=== PATIENT | female | born 1965 | race Caucasian/White ===

== ENCOUNTER 2018-06-03 02:15 | Outpatient (CLI) | payer OTHER, SELFPAY ==
[2018-06-03 09:15] LABS: Anion Gap 7.7 mmol/L (3-11); BUN 14 mg/dL (7-18); CO2 27.3 mmol/L (21.0-32.0); CREATININE 0.86 mg/dL (0.55-1.02); Calcium 8.8 mg/dL (8.5-10.1); Chloride 105 mmol/L (98-107); Cholesterol 228 mg/dL (50-200); Glucose 108 mg/dL (70-100); HDL Cholesterol 40 mg/dL (40-60); LDL CHOLESTEROL 160 mg/dL (<100); Potassium 4.2 mmol/L (3.5-5.1); Sodium 140 mmol/L (136-145); Triglyceride 179 mg/dL (30-150)
== END 2018-06-03 02:35 ==
PROVIDERS: PCP Nurse Practitioner Family; Visit Provider Nurse Practitioner Family
DX: E78.1 Pure hyperglyceridemia (principal); E28.2 Polycystic ovarian syndrome
CPT/HCPCS: 36415; 80048; 80061; 83721

== ENCOUNTER 2018-09-03 16:09 | Outpatient (CLI) | payer OTHER, SELFPAY ==
[2018-09-03 17:40] LABS: ALT 82 U/L (12-78); AST 43 U/L (15-37); Albumin 3.9 g/dL (3.4-5.0); Alkaline Phosphatase 79 U/L (46-116); Bilirubin, Direct 0.08 mg/dL (0.00-0.20); Bilirubin, Total 0.4 mg/dL (0.2-1.0); TSH 3.89 uIU/mL (0.358-3.74); Total Protein 7.3 g/dL (6.4-8.2)
[2018-09-06 09:45] LABS: FSH 37.9 mIU/ml; LH 23.8 mIU/ml
== END 2018-09-03 16:29 ==
PROVIDERS: PCP Nurse Practitioner Family; Visit Provider Nurse Practitioner Family
DX: E78.1 Pure hyperglyceridemia (principal); E28.2 Polycystic ovarian syndrome; E66.9 Obesity, unspecified
CPT/HCPCS: 36415; 80076; 83001; 83002; 84443

== ENCOUNTER 2018-09-14 16:19 | Outpatient (CLI) | payer OTHER, SELFPAY ==
[2018-09-14 17:53] LABS: Iron 52 ug/dL (50-175); Total Iron Binding Capacity 352 ug/dL (250-450); Transferrin Sat 15 % (15-50)
[2018-09-14 18:06] LABS: Ferritin 79 ng/mL (8-388)
[2018-09-16 10:32] LABS: Hepatitis C Ab w Rflx HCV PCR Negative (NEGAT)
[2018-09-16 11:32] LABS: Hepatitis B Surface Ag Negative (NEGAT)
[2018-09-16 11:45] LABS: HBs Antibody, Quant 15.9 mIU/mL; Hepatitis B Surface Ab Positive
[2018-09-16 11:49] LABS: Hep B Core Antibody Negative (NEGAT)
[2018-09-16 13:20] LABS: Transferrin 235 mg/dL (201-352)
== END 2018-09-14 16:39 ==
PROVIDERS: PCP Nurse Practitioner Family; Visit Provider Nurse Practitioner Family
DX: R74.8 Abnormal levels of other serum enzymes (principal)
CPT/HCPCS: 36415; 86704; 86706; 86803; 87340; 82728; 83540; 83550; 84466

== ENCOUNTER 2018-12-01 01:30 | Outpatient (CLI) | payer OTHER, SELFPAY | END 2018-12-01 01:50 | PROVIDERS: PCP Nurse Practitioner Family; Visit Provider Internal Medicine Endocrinology, Diabetes & Metabolism | DX: L68.0 Hirsutism (principal) | CPT/HCPCS: 36415; 82565 ==

== ENCOUNTER 2018-12-06 00:53 | Outpatient (CLI) | payer OTHER, SELFPAY ==
--- NOTE | 2018-12-06 11:02 | DI.MRI_ITS ---
SYMPTOM/DIAGNOSIS: HIRSUTISM, L68.0, ASSESS FOR ADNEXAL OR ADRENAL MASS, OBESITY, E66.9 PELVIS MRI: Comparison is made with pelvic ultrasound dated 01/30/15. The uterus appears normal in size. No fibroids are seen. The endometrial stripe appears normal in thickness. A Nabothian cyst is noted. The bladder is unremarkable. No ovarian cysts or masses are identified. There is no free fluid. There are no abnormal areas of enhancement. The visualized portions of the bowel are unremarkable. IMPRESSION: Pelvic MRI is within normal limits. There is no evidence of an adnexal mass or cyst. ABDOMEN MRI: T 1 and fat suppressed T 2 axial and coronal and post Dotarem T 1 fat suppressed axial and coronal sequences were performed. There is no evidence of an adrenal mass. The heart size is normal. The liver, spleen, gallbladder, pancreas and spleen are unremarkable. The left kidney appears normal. There is a simple appearing cyst at the upper pole of the right kidney. The aorta is normal in diameter. The spine is unremarkable where visualized. IMPRESSION: Simple cyst at the upper pole of the right kidney. No evidence of adrenal mass.
[2018-12-06] MEDS: Normal Saline Flush 10 ML SYR IVP (11:06)
[2018-12-06] MEDS: Gadoterate meglumine 20 ML VIAL IVP (11:07)
== END 2018-12-06 01:13 ==
PROVIDERS: PCP Nurse Practitioner Family; Visit Provider Internal Medicine Endocrinology, Diabetes & Metabolism
DX: N88.8 Other specified noninflammatory disorders of cervix uteri (principal); L68.0 Hirsutism; N28.1 Cyst of kidney, acquired; E66.9 Obesity, unspecified
CPT/HCPCS: 72197; 74183

== ENCOUNTER 2019-03-17 07:58 | Outpatient (CLI) | payer OTHER, SELFPAY ==
[2019-03-17 08:46] LABS: Hemoglobin A1C 5.9 % (4.5-6.2)
[2019-03-17 09:29] LABS: Glucose 96 mg/dL (70-100)
== END 2019-03-17 08:18 ==
PROVIDERS: PCP Nurse Practitioner Family; Visit Provider Nurse Practitioner Family
DX: R94.6 Abnormal results of thyroid function studies (principal); L68.0 Hirsutism; E66.9 Obesity, unspecified
CPT/HCPCS: 36415; 82947; 83036; 84443

== ENCOUNTER 2019-05-11 12:53 | Outpatient (CLI) | payer OTHER, SELFPAY ==
--- NOTE | 2019-05-11 16:32 | DI.MAMMO_ITS ---
EXAM: MG MAMMO SCREENING CLINICAL HISTORY: SCREENING, Z12.39. TECHNIQUE: Bilateral full field digital CC and MLO mammographic images were obtained with 3D tomosyn thesis and utilizing computer aided detection (CAD). COMPARISON: [id number] FINDINGS: Masses/Architectural Distortion: None seen. Microcalcifications: No suspicious pleomorphic-type are seen. Skin Thickening/Nipple Retraction: None. IMPRESSION: 1. No significant interval change with no specific features of malignancy noted. 2. Unless there is more urgent need, screening mammography is recommended, as per [place] [employer] guidelines. BI-RADS Cat 1 - Negative Breast Density - Category B - Scattered areas of fibroglandular density A negative radiographic report should not delay biopsy if a dominant or clinically suspicious mass is present. Up to ten percent of cancers are not identified on mammography. A negative report may reinforce clinical impression. Adenosis and dense breasts may obscure an underlying neoplasm. False positive reports average 6 to 10%. Patient will receive a letter notifying them of these results.
== END 2019-05-11 13:13 ==
PROVIDERS: PCP Nurse Practitioner Family; Visit Provider Nurse Practitioner Family
DX: Z12.31 Encounter for screening mammogram for malignant neoplasm of breast (principal)
CPT/HCPCS: 77063; 77067

== ENCOUNTER 2019-08-25 10:20 | Outpatient (REF) | payer OTHER, SELFPAY ==
--- NOTE | 2019-08-25 08:30 | PAPFT_PTH ---
PATIENT: Manuela Baker LOC: [facility]#:[id number] AGE/SX: 54/F ROOM: RE08/25/[address]: Kelsey Mcdowell : 1965 BED: DIS: 08/25/2019 SPEC #: [id number] RECD: 08/26/19 12:51 STATUS: STEVENSON REQ #: [id number] RADHA: 08/25/19 08:[address]: Kelsey Mcdowell DEPT: [facility] Cytology RECD BY: Ness Ramos Tissues: 1 - CX/ENDOCX FOR PAP SMEARS Procedures: PAP THIN PREP/UVM Screening HPV DNA PROBE Comments: [id number]
[2019-08-25 19:48] LABS: ALT 38 U/L (14-59); AST 23 U/L (15-37); Alkaline Phosphatase 93 U/L (46-116); Bilirubin, Total 0.6 mg/dL (0.2-1.0); Calculated LDL 163 mg/dL (<100); Cholesterol 234 mg/dL (<200); HDL Cholesterol 44 mg/dL (40-60); TSH (W/Ref FT4) 1.59 uIU/mL (0.36-3.74); Total Protein 7.3 g/dL (6.4-8.2); Triglyceride 139 mg/dL (<150)
[2019-08-25 20:01] LABS: Bilirubin, Direct 0.11 mg/dL (0.00-0.20)
[2019-08-25 20:10] LABS: Vitamin D 25 Total 56.4 ng/ml (30-100)
== END 2019-08-25 10:40 ==
LOC: NCHCN 10:20
PROVIDERS: PCP Nurse Practitioner Family; Visit Provider Nurse Practitioner Family
DX: Z00.00 Encounter for general adult medical examination without abnormal findings (principal); Z13.220 Encounter for screening for lipoid disorders; Z13.21 Encounter for screening for nutritional disorder; R94.6 Abnormal results of thyroid function studies; Z12.4 Encounter for screening for malignant neoplasm of cervix; Z01.419 Encounter for gynecological examination (general) (routine) without abnormal findings
CPT/HCPCS: 80061; 80076; 82306; 88142; 84443; 87624

== ENCOUNTER 2019-09-29 08:41 | Outpatient (REF) | payer OTHER, SELFPAY ==
[2019-09-29 19:07] LABS: Anion Gap 8.2 mmol/L (3-11); BUN 13 mg/dL (7-18); CO2 25.8 mmol/L (21.0-32.0); CREATININE 0.82 mg/dL (0.55-1.02); Calcium 9.1 mg/dL (8.5-10.1); Chloride 104 mmol/L (98-107); Glucose 92 mg/dL (74-106); Potassium 4.4 mmol/L (3.5-5.1); Sodium 138 mmol/L (136-145)
== END 2019-09-29 09:01 ==
LOC: NCHCN 08:41
PROVIDERS: PCP Nurse Practitioner Family; Visit Provider Nurse Practitioner Family
DX: Z79.899 Other long term (current) drug therapy (principal)
CPT/HCPCS: 80048

== ENCOUNTER 2020-05-17 02:07 | Outpatient (CLI) | payer OTHER, SELFPAY ==
--- NOTE | 2020-05-17 | DI.MAMMO_ITS ---
EXAM: MG MAMMO SCREENING CLINICAL HISTORY: SCREENING, [facility],Z00.00. TECHNIQUE: Bilateral full field digital CC and MLO mammographic images were obtained with 3D tomosyn thesis and utilizing computer aided detection (CAD). COMPARISON: Prior mammograms dating back to 2010, the most recent being May 2019. FINDINGS: There are no new dominant masses nor malignant appearing microcalcification groups. Small benign micr ocalcification group in the left breast is noted. There is no new architectural distortion nor skin thickening-retraction. IMPRESSION: No radiographic evidence of malignancy. BI-RADS Category 1 - Negative Breast Density - Category B - Scattered areas of fibroglandular density Breast density Category C or D implies that the patient has dense breast tissue. Dense breast tissue can make it harder to find cancer on a mammogram. Dense breast tissue is also associated with an incr eased risk of breast cancer. This information about the result of the mammogram report was provided to the patient to raise their awareness. Use this report when you speak with the patient about their risks for breast cancer, which includes their family history. At that time, you may recommend additional screening tests (Ultrasoun d or MRI) as these tests may add significant information. A negative radiographic report should not delay biopsy if a dominant or clinically suspicious mass is present. Up to ten percent of cancers are not identified on mammography. A negative report may reinforce clinical impression. Adenosis and dense breasts may obscure an underlying neoplasm. False positive reports average 6 to 10%. Patient will receive a letter notifying them of these results.
== END 2020-05-17 02:27 ==
PROVIDERS: PCP Nurse Practitioner Family; Visit Provider Nurse Practitioner Family
DX: Z12.31 Encounter for screening mammogram for malignant neoplasm of breast (principal); Z00.00 Encounter for general adult medical examination without abnormal findings; R92.0 Mammographic microcalcification found on diagnostic imaging of breast
CPT/HCPCS: 77063; 77067

== ENCOUNTER 2020-09-06 09:58 | Outpatient (REF) | payer OTHER, SELFPAY ==
[2020-09-06 15:55] LABS: Hemoglobin A1C 6.1 % (<5.7)
[2020-09-06 15:56] LABS: Anion Gap 10.6 mmol/L (3-11); BUN 18 mg/dL (7-18); CO2 24.4 mmol/L (21.0-32.0); Calcium 9.5 mg/dL (8.5-10.1); Chloride 104 mmol/L (98-107); Estimated GFR 57.35 (mL/min/1.73m2); Glucose 97 mg/dL (74-106); Potassium 4.5 mmol/L (3.5-5.1); Sodium 139 mmol/L (136-145); TSH 2.81 uIU/mL (0.36-3.74)
[2020-09-06 16:12] LABS: Calculated LDL 191 mg/dL (<100); Cholesterol 264 mg/dL (<200); HDL Cholesterol 46 mg/dL (40-60); Triglyceride 139 mg/dL (<150)
[2020-09-07 15:36] LABS: FREE T4 1.07 ng/dL (0.76-1.46)
== END 2020-09-06 09:59 | disposition home or self-care (01) ==
LOC: NCHCN 09:58
PROVIDERS: PCP Nurse Practitioner Family; Visit Provider Nurse Practitioner Family
DX: R94.6 Abnormal results of thyroid function studies (principal); Z00.00 Encounter for general adult medical examination without abnormal findings; R73.03 Prediabetes; E28.2 Polycystic ovarian syndrome; Z13.220 Encounter for screening for lipoid disorders
CPT/HCPCS: 80048; 80061; 83036; 84439; 84443

== ENCOUNTER 2020-12-21 03:20 | Outpatient (CLI) | payer OTHER, SELFPAY ==
[2020-12-21 10:55] LABS: Glucose 97 mg/dL (74-106)
[2020-12-21 21:46] LABS: Calculated LDL 111 mg/dL (<100); Cholesterol 169 mg/dL (<200); HDL Cholesterol 44 mg/dL (40-60); Triglyceride 74 mg/dL (<150)
== END 2020-12-21 03:21 | disposition home or self-care (01) ==
LOC: LBO 03:20
PROVIDERS: PCP Nurse Practitioner Family; Visit Provider Nurse Practitioner Family
DX: R73.03 Prediabetes (principal)
CPT/HCPCS: 36415; 80061; 82947

== ENCOUNTER 2021-01-29 08:25 | Outpatient (REF) | payer OTHER, SELFPAY ==
[2021-01-29 19:38] LABS: COVID-19 RT-PCR UVMMC Result Negative (Negative)
== END 2021-01-29 08:26 | disposition home or self-care (01) ==
LOC: LBN 08:25
PROVIDERS: PCP Nurse Practitioner Family; Visit Provider Nurse Practitioner Pediatrics
DX: Z20.822 Contact with and (suspected) exposure to COVID-19 (principal)
CPT/HCPCS: U0003

== ENCOUNTER 2021-03-29 10:37 | Outpatient (REF) | payer OTHER, SELFPAY ==
[2021-03-29 20:56] LABS: COVID-19 RT-PCR UVMMC Result Negative (Negative)
== END 2021-03-29 10:38 | disposition home or self-care (01) ==
LOC: LBN 10:37
PROVIDERS: PCP Nurse Practitioner Family; Visit Provider Nurse Practitioner Family
DX: Z20.822 Contact with and (suspected) exposure to COVID-19 (principal)
CPT/HCPCS: U0003

== ENCOUNTER 2021-09-30 04:46 | Outpatient (CLI) | payer OTHER, SELFPAY ==
[2021-09-30 12:12] LABS: Anion Gap 7.3 mmol/L (3-11); BUN 14 mg/dL (7-18); CO2 28.7 mmol/L (21.0-32.0); CREATININE 0.9 mg/dL (0.55-1.02); Calcium 9.4 mg/dL (8.5-10.1); Calculated LDL 200 mg/dL (<100); Chloride 104 mmol/L (98-107); Cholesterol 285 mg/dL (<200); Glucose 100 mg/dL (74-106); HDL Cholesterol 50 mg/dL (40-60); Potassium 4.3 mmol/L (3.5-5.1); Sodium 140 mmol/L (136-145); TSH 2.93 uIU/mL (0.36-3.74); Triglyceride 175 mg/dL (<150)
[2021-09-30 12:29] LABS: FREE T4 0.91 ng/dL (0.76-1.46)
== END 2021-09-30 04:47 | disposition home or self-care (01) ==
LOC: LBO 04:46
PROVIDERS: PCP Nurse Practitioner Family; Visit Provider Nurse Practitioner Family
DX: Z00.00 Encounter for general adult medical examination without abnormal findings (principal); R73.03 Prediabetes; E78.5 Hyperlipidemia, unspecified; R94.5 Abnormal results of liver function studies
CPT/HCPCS: 36415; 80048; 80061; 83036; 84439; 84443

== ENCOUNTER 2021-10-15 22:07 | Outpatient (REF) | payer OTHER, SELFPAY ==
[2021-10-15 14:39] LABS: Source Nasal/Nares
[2021-10-15 17:50] LABS: COVID-19 PCR Negative (Negative)
== END 2021-10-15 22:08 | disposition home or self-care (01) ==
LOC: LBN 22:07
PROVIDERS: PCP Nurse Practitioner Family; Visit Provider Nurse Practitioner Family
DX: Z20.822 Contact with and (suspected) exposure to COVID-19 (principal)
CPT/HCPCS: 87635

== ENCOUNTER → 2022-05-19 02:17 | Outpatient (CLI) | payer OTHER, SELFPAY ==
--- NOTE | 2022-05-19 12:15 | DI.MAMMO_ITS ---
Exam(s) MAMMO SCREENING EXAM: MAMMO SCREENING CLINICAL HISTORY: SCREENING FOR BREAST CANCER Z12.39. TECHNIQUE: Bilateral full field digital CC and MLO mammographic images were obtained with 3D tomosyn thesis and utilizing computer aided detection (CAD). COMPARISON: Prior mammograms were reviewed. FINDINGS: There has been no significant change in the appearance and distribution of the fibroglandular tissue. Asymmetric tissue in the right breast is unchanged from prior studies. There are no new spiculated masses nor malignant appearing microcalcification groups. There is no significant architectural distortion nor skin thickening-retraction. IMPRESSION: No radiographic evidence of malignancy. BI-RADS Category 1 - Negative Breast Density - Category B - Scattered areas of fibroglandular density Breast density Category C or D implies that the patient has dense breast tissue. Dense breast tissue can make it harder to find cancer on a mammogram. Dense breast tissue is also associated with an incr eased risk of breast cancer. This information about the result of the mammogram report was provided to the patient to raise their awareness. Use this report when you speak with the patient about their risks for breast cancer, which includes their family history. At that time, you may recommend additional screening tests (Ultrasoun d or MRI) as these tests may add significant information. A negative radiographic report should not delay biopsy if a dominant or clinically suspicious mass is present. Up to ten percent of cancers are not identified on mammography. A negative report may reinforce clinical impression. Adenosis and dense breasts may obscure an underlying neoplasm. False positive reports average 6 to 10%. Patient will receive a letter notifying them of these results.
== END ==
PROVIDERS: PCP Nurse Practitioner Family; Visit Provider Nurse Practitioner Family
DX: Z12.31 Encounter for screening mammogram for malignant neoplasm of breast (principal)
CPT/HCPCS: 77063; 77067

== ENCOUNTER 2023-02-05 02:17 | Outpatient (CLI) | payer OTHER, SELFPAY ==
[2023-02-05 10:21] LABS: Hemoglobin A1C 5.9 % (<5.7)
[2023-02-05 10:24] LABS: Anion Gap 7.6 mmol/L (3-11); BUN 13 mg/dL (7-18); CO2 28.4 mmol/L (21.0-32.0); CREATININE 0.8 mg/dL (0.55-1.02); Calcium 9.2 mg/dL (8.5-10.1); Calculated LDL 187 mg/dL (<100); Chloride 103 mmol/L (98-107); Cholesterol 260 mg/dL (<200); Estimated GFR 85.35 (mL/min/1.73m2); Glucose 103 mg/dL (74-106); HDL Cholesterol 53 mg/dL (40-60); Potassium 4.6 mmol/L (3.5-5.1); Sodium 139 mmol/L (136-145); TSH (W/Ref FT4) 3.64 uIU/mL (0.36-3.74); Triglyceride 102 mg/dL (<150)
== END 2023-02-05 02:18 | disposition home or self-care (01) ==
LOC: LBO 02:17
PROVIDERS: PCP Nurse Practitioner Family; Visit Provider Nurse Practitioner Family
DX: Z00.00 Encounter for general adult medical examination without abnormal findings (principal); R94.5 Abnormal results of liver function studies; R73.03 Prediabetes
CPT/HCPCS: 36415; 80048; 80061; 83036; 84443

== ENCOUNTER 2023-04-08 05:06 | Outpatient (CLI) | payer OTHER, SELFPAY ==
[2023-04-08 10:08] LABS: TSH (W/Ref FT4) 2.25 uIU/mL (0.36-3.74)
== END 2023-04-08 05:07 | disposition home or self-care (01) ==
PROVIDERS: PCP Nurse Practitioner Family; Visit Provider Nurse Practitioner Family
DX: Z00.00 Encounter for general adult medical examination without abnormal findings (principal); R94.6 Abnormal results of thyroid function studies
CPT/HCPCS: 36415; 84443

== ENCOUNTER → 2023-05-21 00:47 | Outpatient (CLI) | payer OTHER, SELFPAY ==
--- NOTE | 2023-05-21 | DI.MAMMO_ITS ---
Exam(s) MAMMO SCREENING EXAM: MAMMO SCREENING CLINICAL HISTORY: SCREENING, Z12.39 TECHNIQUE: Bilateral full field digital CC and MLO mammographic images were obtained with 3D tomosyn thesis and utilizing computer aided detection (CAD). COMPARISON: Available for comparison. FINDINGS: Masses/Architectural Distortion: None seen. Microcalcifications: No suspicious pleomorphic-type are seen. Skin Thickening/Nipple Retraction: None. IMPRESSION: 1. No significant interval change with no specific features of malignancy noted. 2. Unless there is more urgent need, screening mammography is recommended, as per [employer] [employer] guidelines. BI-RADS Category 1 - Negative Breast Density - Category B - Scattered areas of fibroglandular density Breast density category C or D implies that the patient has dense breast tissue. Dense breast tissue is very common and is not abnormal but dense breast tissue can make it harder to find cancer on a ma mmogram. Also, dense breast tissue may increase their breast cancer risk. This information about the result of the mammogram report was provided to the patient to raise their awareness. Use this report when you speak with the patient about their risks for breast cancer, which includes their family hist ory. At that time, you may recommend for more screening tests (Ultrasound or MRI) as they might be us eful based on their risk. A negative radiographic report should not delay biopsy if a dominant or clinically suspicious mass is present. Up to ten percent of cancers are not identified on mammography. A negative report may reinforce clinical impression. Adenosis and dense breasts may obscure an underlying neoplasm. False positive reports average 6 to 10%. Patient will receive a letter notifying them of these results.
== END ==
PROVIDERS: PCP Nurse Practitioner Family; Visit Provider Nurse Practitioner Family
DX: Z12.31 Encounter for screening mammogram for malignant neoplasm of breast (principal)
CPT/HCPCS: 77063; 77067

== ENCOUNTER 2024-06-03 14:55 | Outpatient (REF) | payer OTHER, SELFPAY ==
--- NOTE | 2024-06-03 14:15 | PAPFT_PTH ---
PATIENT: Manuela Baker LOC: [facility] U#:[id number] AGE/SX: 58/F ROOM: RE06/03/[address]: Sophia Tayolr : 1965 BED: DIS: 06/03/2024 SPEC #: [id number] RECD: 06/06/24 13:13 STATUS: STEVENSON REQ #: [id number] RADHA: 06/03/24 14:[address]: Sophia Taylor DEPT: [facility] Cytology RECD BY: Ness Ramos ENTERED: 06/06/24 13:14 SP TYPE: PAPFT OTHR DR: Kelsey Mcdowell Tissues: 1 - CX/ENDOCX FOR PAP SMEARS Procedures: PAP THIN PREP/UVM Screening HPV DNA PROBE Comments: [id number] (HPV 16 & 18/45)
[2024-06-03 19:54] LABS: ALT 28 U/L (14-59); AST 24 U/L (15-37); Albumin 4.1 g/dL (3.4-5.0); Alkaline Phosphatase 83 U/L (46-116); Anion Gap 11.3 mmol/L (3-11); BUN 16 mg/dL (7-18); Bilirubin, Total 0.41 mg/dL (0.2-1.0); CO2 24.7 mmol/L (21.0-32.0); CREATININE 0.9 mg/dL (0.55-1.02); Calcium 9.7 mg/dL (8.5-10.1); Calculated LDL 165 mg/dL (<100); Chloride 105 mmol/L (98-107); Cholesterol 275 mg/dL (<200); Estimated GFR 73.64 (mL/min/1.73m2); Folate > 20.0 ng/mL (8.6-20.0); Glucose 110 mg/dL (74-106); HDL Cholesterol 46 mg/dL (40-60); Sodium 141 mmol/L (136-145); TSH 1.53 uIU/mL (0.36-3.74); Triglyceride 321 mg/dL (<150); Vitamin B12 1198 pg/mL (193-986)
[2024-06-03 20:11] LABS: FREE T4 0.89 ng/dL (0.76-1.46)
[2024-06-04 22:34] LABS: T3,Free 3.1 pg/mL (2.8-5.3)
== END 2024-06-03 14:56 | disposition home or self-care (01) ==
LOC: NCHCN 14:55
PROVIDERS: PCP Nurse Practitioner Family; Visit Provider Nurse Practitioner Family
DX: E78.5 Hyperlipidemia, unspecified (principal); R94.6 Abnormal results of thyroid function studies; E23.2 Diabetes insipidus
CPT/HCPCS: 80053; 80061; 88142; 82607; 82746; 83036; 84439; 84443; 84481; 87624

== ENCOUNTER 2024-06-07 01:17 | Outpatient (CLI) | payer OTHER, SELFPAY ==
--- NOTE | 2024-06-07 09:24 | DI.MAMMO_ITS ---
Exam(s) MAMMO SCREENING EXAM: MAMMO SCREENING CLINICAL HISTORY: SCREENING,Z12.31. TECHNIQUE: Bilateral full field digital CC and MLO mammographic images were obtained with 3D tomosyn thesis and utilizing computer aided detection (CAD). COMPARISON: Prior mammograms were reviewed. FINDINGS: There has been no significant change in the appearance and distribution of the fibroglandular tissue. There are no new spiculated masses nor malignant appearing microcalcification groups. There is no significant architectural distortion nor skin thickening-retraction. IMPRESSION: No radiographic evidence of malignancy. BI-RADS Category 1 - Negative Breast Density - Category B - Scattered areas of fibroglandular density Breast density Category C or D implies that the patient has dense breast tissue. Dense breast tissue can make it harder to find cancer on a mammogram. Dense breast tissue is also associated with an incr eased risk of breast cancer. This information about the result of the mammogram report was provided to the patient to raise their awareness. Use this report when you speak with the patient about their risks for breast cancer, which includes their family history. At that time, you may recommend additional screening tests (Ultrasoun d or MRI) as these tests may add significant information. A negative radiographic report should not delay biopsy if a dominant or clinically suspicious mass is present. Up to ten percent of cancers are not identified on mammography. A negative report may reinforce clinical impression. Adenosis and dense breasts may obscure an underlying neoplasm. False positive reports average 6 to 10%. Patient will receive a letter notifying them of these results.
== END 2024-06-07 01:37 ==
PROVIDERS: PCP Nurse Practitioner Family; Visit Provider Nurse Practitioner Family
DX: Z12.31 Encounter for screening mammogram for malignant neoplasm of breast (principal); R92.323 Mammographic fibroglandular density, bilateral breasts
CPT/HCPCS: 77063; 77067

== ENCOUNTER 2025-05-03 10:24 | Outpatient (REF) | payer OTHER, SELFPAY ==
[2025-05-03 17:51] LABS: HCT 43.1 % (36.0-46.0); HGB 14.1 g/dL (11.2-15.7); MCH 29.3 pg (27.0-33.0); MCHC 32.7 % (32.0-36.0); MCV 90 fL (80-95); MPV 10.8 fL (8.0-11.0); Platelet Count 206 10^3/uL (130-400); RBC 4.81 10^6/uL (3.93-5.22); RDW 12.9 % (11.7-14.6); RDW-SD 42.7 fL; WBC 4.71 10^3/uL (4.4-10.8)
[2025-05-03 18:07] LABS: TSH 1.84 uIU/mL (0.55-4.78)
[2025-05-03 18:10] LABS: ALT 25 U/L (10-49); AST 28 U/L (<34); Albumin 4.6 g/dL (3.2-5.0); Alkaline Phosphatase 70 U/L (46-116); Anion Gap 7.1 mmol/L (3-11); BUN 13 mg/dL (9-23); Bilirubin, Total 0.50 mg/dL (0.2-1.2); CO2 22.9 mmol/L (20.0-31.0); Calcium 9.5 mg/dL (8.3-10.6); Chloride 109 mmol/L (98-107); Cholesterol 236 mg/dL (<200); Glucose 111 mg/dL (74-106); HDL Cholesterol 44 mg/dL (>40); Potassium 4.3 mmol/L (3.5-5.1); Sodium 139 mmol/L (136-145); Total Protein 7.5 g/dL (5.7-8.2)
[2025-05-03 18:13] LABS: Hemoglobin A1C 6.1 % (<5.7)
== END 2025-05-03 10:25 | disposition home or self-care (01) ==
LOC: NCHCN 10:24
PROVIDERS: PCP Nurse Practitioner Family; Visit Provider Family Medicine
DX: R73.03 Prediabetes (principal); E28.2 Polycystic ovarian syndrome; E03.9 Hypothyroidism, unspecified; E78.5 Hyperlipidemia, unspecified
CPT/HCPCS: 80053; 80061; 85027; 83036; 84439; 84443